=== PATIENT | male | born 1955 | race Caucasian/White ===

== ENCOUNTER 2021-04-15 12:54 | Emergency (ER) | payer MEDICARE, MEDICAID, SELFPAY | END 2021-04-16 02:53 | disposition left against medical advice (07) | PROVIDERS: Emergency Provider Emergency Medicine | DX: K50.90 Crohn's disease, unspecified, without complications (principal); R10.9 Unspecified abdominal pain ==

== ENCOUNTER 2021-05-20 09:44 | Emergency (ER) | payer MEDICARE, MEDICAID, SELFPAY ==
[2021-05-20 09:49] VITALS: BP 118/63; PULSE 72; RESP 18; TEMP 36.9; O2SAT 97; BMI 25.8
--- NOTE | 2021-05-20 10:29 | ED.EAR ---
HPI - Ear Problem General Chief complaint: Ear Problems Stated complaint: ear pain Time Seen by Provider: 05/20/21 10:17 Source: patient Mode of arrival: ambulatory Limitations: no limitations History of Present Illness HPI Narrative: 65-year-old male presents to ED for left ear pain since yesterday. Patient states feels like swimmer's ear. Patient denies any recent swimming in the [place]. Patient states pain started after using Q-tips yesterday. Patient denies any loss of hearing, ear discharge, blood from the ear, headache, nausea, or vomiting. Patient denies any coughing, fever, chills, sore throat, dental pain, body aches. MD Complaint: ear pain Related Data Previous Rx's Medication Instructions Recorded amoxicillin 875 mg-potassium 1 tab PO Q12H 10 Days #20 tab 05/20/21 clavulanate 125 mg tablet naproxen 500 mg tablet 500 mg PO BID PRN 10 Days #20 tab 05/20/21 Allergies Allergy/AdvReac Type Severity Reaction Status Date / Time No Known Allergies Allergy Verified 05/20/21 09:49 Review of Systems Review of Systems: Left ear pain Yes all other systems are reviewed and are negative FOR[facility]LY [facility], [facility] Social History Social History Advance Directives: No Advance Directives Information Provided: No Physical Exam Vital Signs: Vital Signs: Last Vital Signs Temp 98.4 F 05/20/21 09:49 Pulse 72 05/20/21 09:49 Resp 18 05/20/21 09:49 BP 118/63 05/20/21 09:49 Pulse Ox 97 05/20/21 09:49 BMI result Body Mass Index 25.8 Const: General: cooperative, healthy appearing, comfortable, no acute distress, well developed, alert and awake Orientation/consciousness: patient oriented x3 HENMT: Head: Yes normal to inspection, Yes No palpable skull fracture present, Yes normocephalic and Yes atraumatic Ears: hearing grossly normal bilaterally, external ears normal, TM normal on the right, EAC's normal, mastoids normal, no periauricular adenopathy and TM abnormal (left) erythematous Eyes: General: appearance normal, both eyes and all related structures Neck: Neck: Yes normal visual inspection, Yes full ROM, Yes no lymphadenopathy, Yes no meningeal signs, Yes trachea midline, Yes supple, No anterior neck swelling and No tender Chest: Chest palpation & inspection: normal inspection of the chest and normal palpation of entire chest wall Resp: Effort & Inspection: normal respiratory effort and able to speak in complete sentences Auscultation: clear to auscultation bilaterally Cardio: Jugular venous distension: no JVD Heart sounds: S1 normal heart sound present and S2 normal heart sound present GI: Inspection: Yes normal to inspection and No abdominal wall ecchymosis Palpation (GI): Soft to palpation, not firm, nontender, no guarding and not rigid : General: No CVA tenderness and Yes no CVA tenderness Back/Spine/Pelvis: Back: no CVA tenderness, No CVA tenderness and No back tenderness Cervical Spine: normal cervical lordosis Skin: General skin exam: no rashes or lesions noted and elasticity normal Neuro: General: patient oriented x3, gait normal and no meningeal signs Cranial nerves: Yes CN's II-XII intact bilaterally Extrem: General: Yes normal to inspection and Yes full ROM Psych: Appearance: grossly normal, well kempt and not disheveled Course Course Course Narrative: Ear evaluated Reevaluation(s) Reevaluation #1: History physical exam indicate otitis media. Patient will be discharged with pain medication oral antibiotics. Time: 10:32 MDM - Ear MDM Narrative Medical decision making narrative: otitis media Discharge Plan Discharge Clinical Impression: Otitis media Patient Disposition: Home, Self-Care Instructions: Ear Infection (ED) Additional Instructions: You will be discharged with oral antibiotics and pain medication. Please follow-up with your primary care provider. Return to the ED immediately for worsening ear pain, drainage, loss of hearing, headache, dizziness, facial droop, paralysis of extremities, toothache, redness/swelling in front or behind the ear, or any other concerning symptoms. Prescriptions: New naproxen 500 mg tablet 500 mg PO BID PRN (Reason: pain) 10 Days Qty: 20 0RF amoxicillin-pot clavulanate 875-125 mg tablet 1 tab PO Q12H 10 Days Qty: 20 0RF Stand Alone Forms: Work/School Release Interventions: ED Discharge Assessment Last Done: 05/20/21 10:44 Discharge Date/Time: 05/20/21 11:01 Print Language: Kazakh
== END 2021-05-20 11:01 | disposition home or self-care (01) ==
PROVIDERS: Emergency Provider Emergency Medicine; PCP Physician Assistant
DX: H66.92 Otitis media, unspecified, left ear (principal)
CPT/HCPCS: 99283

== ENCOUNTER 2021-08-10 07:00 | Emergency (ER) | payer MEDICARE, MEDICAID, SELFPAY ==
[2021-08-10 07:25] VITALS: BP 125/70; BP 146/96; PULSE 54; PULSE 84; RESP 18; TEMP 36.6; O2SAT 96; O2SAT 98; BMI 27.2
--- NOTE | 2021-08-10 08:07 | ED_ITS ---
HPI - General Adult General Chief complaint: General Medical Stated complaint: abd pain h/o hernia per ems Time Seen by Provider: 08/10/21 08:06 Source: patient Mode of arrival: ambulatory Limitations: no limitations History of Present Illness HPI narrative: Patient is a 66 year old male presenting to the emergency department today with left sided groin pain. Patient states that he has a known hernia in his left groin and it seems to have gotten worse after lifting a couch the other day. Patient states that he has not consulted a general surgeon about this. Patient denies any dizziness, lightheadedness, abdominal pain, nausea, vomiting, fever, chills, blurry vision, double vision, loss of vision, chest pain, difficulty breathing, shortness of breath, back pain, night sweats, pain with urination, increased urinary frequency, increased urinary urgency, blood in his urine or stool, syncope or a near syncopal episode, recent trauma or falls, bowel incontinence, bladder incontinence, bowel retention, bladder retention, or any other complaints at this time. Onset (ago): day(s) Location: genitals Radiation: non-radiation Severity: mild Severity scale (1-10): 2 Quality: dull Pain Consistency: constant Relieving factors: none Exacerbating factors: none Associated symptoms: denies other symptoms Treatments prior to arrival: none Related Data Previous Rx's Medication Instructions Recorded amoxicillin 875 mg-potassium 1 tab PO Q12H 10 Days #20 tab 05/20/21 clavulanate 125 mg tablet naproxen 500 mg tablet 500 mg PO BID PRN 10 Days #20 tab 05/20/21 Allergies Allergy/AdvReac Type Severity Reaction Status Date / Time No Known Allergies Allergy Verified 05/20/21 09:49 Review of Systems Constitutional: Constitutional: Reports no additional constitutional complaints, Denies chills, Denies fever(s) and Denies night sweats Eyes: Eyes: Reports no additional eye complaints, Denies blurry vision, Denies change in vision, Denies diplopia, Denies eye discharge, Denies loss of vision and Denies eye pain ENT: Denies dizziness Cardiovascular: Cardiovascular: Reports no additional cardiovascular complaints, Denies chest pain, Denies lightheadedness, Denies Loss of Consciousness and Denies dyspnea Respiratory: Respiratory: Reports no additional respiratory complaints and Denies dyspnea Gastrointestinal: Gastrointestinal: Reports no additional gastrointestinal complaints, Denies abdominal pain, Denies melena, Denies hematochezia, Denies change in bowel habits and Denies change in stool character Genitourinary: Genitourinary: Reports no additional male genitourinary complaints, Denies hematuria, Denies oliguria, Denies difficulty urinating, Denies dysuria, Reports testicular pain, Denies urinary frequency, Denies urinary hesitancy, Denies urinary incontinence and Denies urinary urgency Musculoskeletal: Musculoskeletal: Reports no additional musculoskeletal complaints, Denies numbness and Denies tingling Neurologic: Denies dizziness, Denies loss of vision, Denies numbness and Denies tingling Psychiatric: Psychiatric: Reports no additional psychiatric complaints Endocrine: Endocrine: Reports no additional endocrine complaints Hematologic/Lymphatic: Hematologic/Lymphatic: Reports no additional hematologic/lymphatic complaints Allergic/Immunologic: Allergic/Immunologic: Reports no additional allergic/immunologic complaints PMFSH Past Medical History Attestation statement: The following information was validated with the patient. Source: old records reviewed Social History Social History Patient Tobacco Use Status: Current someday Tobacco user Advance Directives: No Advance Directives Information Provided: No Physical Exam ED Vital Signs: Vital Signs - 24 hr 08/10/21 07:25 Temperature 97.8 F Pulse Rate 54 Respiratory Rate 18 Blood Pressure 125/70 Pulse Oximetry 98 BMI result Body Mass Index 27.2 Const General: cooperative, no acute distress, alert and awake Nutritional Appearance: well nourished Orientation/consciousness: patient oriented x3 Limitations: no limitations HENMT Head: Yes normal to inspection and Yes atraumatic Ears: hearing grossly normal bilaterally and external ears normal General nose exam: Normal external nose present, no nasal discharge noted and no epistaxis Face and sinus: Yes normal facial exam, No abrasion and No laceration Mouth: Normal oral and palatal mucosa present, no drooling and no muffled voice Eyes General: appearance normal, both eyes and all related structures Periorbital: periorbital findings normal Eyelids: Yes eyelids normal Conjunctivae: conjunctivae normal Pupils: Equal, round and reactive pupils present EOM: EOMs intact bilaterally Neck Neck: Yes normal visual inspection, Yes full ROM and Yes no lymphadenopathy Chest Chest palpation & inspection: normal inspection of the chest Resp Effort & Inspection: normal respiratory effort and able to speak in complete sentences Auscultation: clear to auscultation bilaterally Cardio Rate: regular rate Rhythm: regular rhythm GI Inspection: Yes normal to inspection Other: left sided inguinal hernia present, easily reducible Neuro General: patient oriented x3 and moves all extremities Cranial nerves: Yes Equal, round and reactive pupils present Cognition (Neuro): normal cognition Motor exam (neuro): 5/5 motor strength present throughout Sensory Exam: Normal double simultaneous stimulation for sensation Coordination: [id number] test normal Extrem General: Yes normal to inspection, Yes full ROM and Yes capillary refill normal Psych Appearance: grossly normal Mental Status: mental status grossly normal Affect: normal affect Attitude: cooperative Thought process: Normal thought process present Thought content: Normal thought content present Insight: Good insight present (Psych) Medical Decision Making MDM Narrative Medical decision making narrative: Patient is a 66 year old male presenting to the emergency department today with left sided groin pain. Patient's physical exam showed a left sided inguinal hernia that was easily reducible but was otherwise unremarkable. Patient's blood work showed elevated LFTs however, the patient states that he has a history of alcohol abuse and his liver stuff is always off . I explained my physical exam findings as well as all test results to the patient. I answered all questions asked by the patient. Patient received IM Toradol and PO [place] which he stated helped his pain significantly. I stressed the importance of the patient taking his medication as prescribed. I stressed the importance of the patient following up with his primary care provider. I stressed the importance of the patient returning to the emergency department immediately if his symptoms were to worsen or if he were to develop any dizziness, shortness of breath, difficulty br eathing, chest pain, blurry vision, loss of vision, nausea, vomiting, abdominal pain, fever, chills, back pain, or any other complaints. Patient verbalized agreement and understanding with this treatment plan and discharge. Differential Diagnosis Differential Diagnosis: inguinal hernia Medical Records Medical records reviewed: Yes I reviewed the patient's medical records. Lab Data Lab results reviewed: Yes I reviewed the patient's lab results. Result diagrams: 08/10/21 09:10 08/10/21 09:10 Labs: Lab Results 08/10/21 08/10/21 Range/Units 09:10 09:10 WBC 8.3 (4.8-10.8) X10*3/uL RBC 5.61 (4.60-5.80) X10*6/uL Hgb 15.7 (14.0-18.0) g/dl Hct 47.4 (42.0-52.0) % MCV 84.5 (80.0-98.0) fL MCH 28.0 (27.0-33.0) pg MCHC 33.1 (31.0-36.0) g/dl RDW 14.5 (11.0-16.0) % Plt Count 159 L (160-400) X10*3/uL MPV 10.4 (9.4-12.4) fL Immature Gran % (Auto) 0.5 H (0.0-0.4) % Neut % (Auto) 79.7 H (45-73) % Lymph % (Auto) 12.1 L (20-40) % [place] % (Auto) 5.3 (2-11) % Eos % (Auto) 1.8 (0-4) % Baso % (Auto) 0.6 (0-2) % Lymph # (Auto) 1.0 L (1.2-4.9) X10*3/uL [place] # (Auto) 0.4 (0.1-1.2) X10*3/uL Eos # (Auto) 0.2 (0.0-0.4) X10*3/uL Baso # (Auto) 0.1 (0.0-0.2) X10*3/uL Abs Immat Gran (auto) 0.04 H (0.00-0.03) X10*3/uL Absolute Neuts (auto) 6.6 (2.0-8.3) x10*3/uL Absolute Nucleated RBC 0.000 (0.0-0.012) X10*3/uL Nucleated RBC % (auto) 0.0 (0.0-0.2) /100WBC Sodium 136 (135-145) mmol/L Potassium 4.7 (3.3-5.1) mmol/L Chloride 105 (96-108) mmol/L Carbon Dioxide 22 (22-29) mmol/L Anion Gap 14 (12-20) BUN 15 (9-16) mg/dL Creatinine 0.94 (0.5-1.4) mg/dL Estim Creat Clear Calc 80.8 Estimated GFR > 60 Random Glucose 102 (60-115) mg/dL Calcium 9.8 (8.4-10.2) mg/dL Total Bilirubin 1.7 H (0.0-1.0) mg/dL AST 71 H (5-37) U/L ALT 74 H (0-40) U/L Alkaline Phosphatase 146 H (39-117) U/L Total Protein 7.7 (6.5-8.0) g/dL Albumin 4.5 (3.5-5.0) g/dL Discharge Plan Discharge Clinical Impression: Inguinal hernia Patient Disposition: Home, Self-Care Instructions: Inguinal Hernia (ED) Additional Instructions: Follow up with your primary care provider. Return to the emergency department immediately if your symptoms worsen or if you develop any dizziness, shortness of breath, difficulty breathing, chest pain, blurry vision, loss of vision, nausea, vomiting, abdominal pain, fever, chills, back pain, or any other complaints. Prescriptions: No Action naproxen 500 mg tablet 500 mg PO BID PRN (Reason: pain) 10 Days Qty: 20 0RF amoxicillin-pot clavulanate 875-125 mg tablet 1 tab PO Q12H 10 Days Qty: 20 0RF Referrals: [facility] [place] General Surgeons [Provider Group] (Call to follow up with a general surgeon. ) [facility] [place] Family Medicine [Provider Group] (Call to establish with a primary care provider. If you already have one, please follow up with them. ) [facility] [place] Primary Care, Elias [Provider Group] (Call to establish with a primary care provider. If you already have one, please follow up with them. ) [facility] [place] Primary Care,Rupal [Provider Group] (Call to establish with a primary care provider. If you already have one, please follow up with them. ) Interventions: ED Discharge Assessment Last Done: 08/10/21 10:01 Discharge Date/Time: 08/10/21 10:03 Print Language: Cambodian
[2021-08-10] MEDS: Ketorolac Tromethamine 15 MG/ML VIAL IM (08:25)
[2021-08-10 09:17] LABS: Basophils Absolute Auto 0.1 X10*3/uL (0.0-0.2); Basophils Percent Auto 0.6 % (0-2); Eosinophils Absolute Auto 0.2 X10*3/uL (0.0-0.4); Eosinophils Percent Auto 1.8 % (0-4); Hematocrit 47.4 % (42.0-52.0); Hemoglobin 15.7 g/dl (14.0-18.0); Imm Gran Abs Auto 0.04 X10*3/uL (0.00-0.03); Imm Gran Pct Auto 0.5 % (0.0-0.4); Lymphocytes Percent Auto 12.1 % (20-40); MANUAL DIFF FLAG NO; Mean Corpuscular HGB Conc 33.1 g/dl (31.0-36.0); Mean Corpuscular Volume 84.5 fL (80.0-98.0); Mean Platelet Volume 10.4 fL (9.4-12.4); Monocytes Absolute Auto 0.4 X10*3/uL (0.1-1.2); Monocytes Percent Auto 5.3 % (2-11); Neutrophils Absolute Auto 6.6 x10*3/uL (2.0-8.3); Neutrophils Percent Auto 79.7 % (45-73); Platelet Count 159 X10*3/uL (160-400); Red Blood Count 5.61 X10*6/uL (4.60-5.80); Red Cell Distribution Width 14.5 % (11.0-16.0); White Blood Count 8.3 X10*3/uL (4.8-10.8)
[2021-08-10 09:33] LABS: Alanine Aminotransferase 74 U/L (0-40); Albumin Level 4.5 g/dL (3.5-5.0); Alkaline Phosphatase 146 U/L (39-117); Anion Gap 14 (12-20); Aspartate Amino Transferase 71 U/L (5-37); Bilirubin Total 1.7 mg/dL (0.0-1.0); Blood Urea Nitrogen 15 mg/dL (9-16); Calcium 9.8 mg/dL (8.4-10.2); Carbon Dioxide 22 mmol/L (22-29); Chloride 105 mmol/L (96-108); Creatinine Clr Calc Pharmacy 80.8; Estimated Glomerular Filt Rate > 60; Glucose Random 102 mg/dL (60-115); Potassium 4.7 mmol/L (3.3-5.1); Sodium 136 mmol/L (135-145); Total Protein 7.7 g/dL (6.5-8.0)
[2021-08-10] MEDS: HYDROcodone Bit/Acetam 5/325 TABLET 1 TAB PO (09:57)
== END 2021-08-10 10:03 | disposition home or self-care (01) ==
PROVIDERS: Physician Assistant Medical; Emergency Provider Emergency Medicine Emergency Medical Services
DX: K40.90 Unilateral inguinal hernia, without obstruction or gangrene, not specified as recurrent (principal); R10.32 Left lower quadrant pain; F17.200 Nicotine dependence, unspecified, uncomplicated
CPT/HCPCS: 36415; 80053; 85025; 96372; 99284; J1885

== ENCOUNTER 2023-09-27 10:35 | Emergency (ER) | payer OTHER, SELFPAY ==
--- NOTE | ~2023-09-27 | XR_ITS ---
Examination: XR foot LT 2V, XR knee LT 4V Indication: slight ecchymosis. fracture? Comparison: No pertinent prior studies are currently available for comparison. Technique: 4 views of the left knee and 3 views of the left foot. Findings: Left knee: No significant knee joint effusion. Lungs are normal anatomic alignment with no acute fracture or dislocation. Mild tricompartmental degenerative changes are seen more so in the medial compartment where there is more significant joint space loss and subchondral sclerosis. No bony destructive lesions. Vascular calcification seen. Left foot: Bones are normal anatomic alignment with no acute fracture or dislocation seen. No bony destructive lesions or periosteal reaction. Tiny radiopaque foreign bodies are seen within the soft tissues of the foot posterior to the calcaneus and in the region of the fifth metatarsal head. These are of unlikely acute significance. XR/XR knee LT 4V Impression: Mild degenerative changes but no acute fracture or dislocation. Tiny radiopaque foreign bodies in the soft tissues posterior to the calcaneus and fifth metatarsal head.
--- NOTE | ~2023-09-27 | US_ITS ---
EXAMINATION: US VENOUS ULTRASOUND WITH DOPPLER LOWER EXTREMITY, LEFT CLINICAL INFORMATION: Left lower extremity pain. COMPARISON: None available. TECHNIQUE: Ultrasound of the deep veins is performed from the hip to the calf with compression sonography and color and pulse Doppler assessment. Spectral analysis with color-flow imaging is performed. FINDINGS: There is normal venous compression and respiratory variation and augmented flow. The visualized common femoral vein, superficial femoral vein, profunda femoral vein, popliteal vein, and the trifurcation region shows no evidence of deep venous thrombosis. There is no significant popliteal fossa cyst. If the patient's symptoms persist, followup ultrasound in 5 days 7 days might be of value to exclude proximal propagation from a non-visualized calf vein. US/US venous duplex LE IMPRESSION: No DVT demonstrated in the left lower extremity.
--- NOTE | ~2023-09-27 | XR_ITS ---
Examination: XR foot LT 2V, XR knee LT 4V Indication: slight ecchymosis. fracture? Comparison: No pertinent prior studies are currently available for comparison. Technique: 4 views of the left knee and 3 views of the left foot. Findings: Left knee: No significant knee joint effusion. Lungs are normal anatomic alignment with no acute fracture or dislocation. Mild tricompartmental degenerative changes are seen more so in the medial compartment where there is more significant joint space loss and subchondral sclerosis. No bony destructive lesions. Vascular calcification seen. Left foot: Bones are normal anatomic alignment with no acute fracture or dislocation seen. No bony destructive lesions or periosteal reaction. Tiny radiopaque foreign bodies are seen within the soft tissues of the foot posterior to the calcaneus and in the region of the fifth metatarsal head. These are of unlikely acute significance. XR/XR foot LT 2V Impression: Mild degenerative changes but no acute fracture or dislocation. Tiny radiopaque foreign bodies in the soft tissues posterior to the calcaneus and fifth metatarsal head.
[2023-09-27 10:43] VITALS: BP 120/77; PULSE 77; RESP 18; TEMP 36.7; O2SAT 97; BMI 25.8
[2023-09-27 11:00] LABS: MANUAL DIFF FLAG NO
[2023-09-27 11:02] LABS: PLT CLUMP 1; Red Cell Distribution Width 13.8 % (11.0-16.0); SCAN SMEAR FLAG 1
[2023-09-27 11:04] LABS: Basophils Absolute Auto 0.1 X10*3/uL (0.0-0.2); Basophils Percent Auto 0.8 % (0-2); Eosinophils Absolute Auto 0.7 X10*3/uL (0.0-0.4); Eosinophils Percent Auto 5.6 % (0-4); Hematocrit 42.8 % (42.0-52.0); Hemoglobin 15.4 g/dl (14.0-18.0); Imm Gran Abs Auto 0.06 X10*3/uL (0.00-0.03); Imm Gran Pct Auto 0.5 % (0.0-0.4); Lymphocytes Absolute Auto 2.1 X10*3/uL (1.2-4.9); Lymphocytes Percent Auto 17.8 % (20-40); Mean Corpuscular Hemoglobin 31.8 pg (27.0-33.0); Mean Corpuscular Volume 88.4 fL (80.0-98.0); Mean Platelet Volume 11.1 fL (9.4-12.4); Monocytes Absolute Auto 0.8 X10*3/uL (0.1-1.2); Neutrophils Absolute Auto 7.9 x10*3/uL (2.0-8.3); Neutrophils Percent Auto 68.3 % (45-73); Red Blood Count 4.84 X10*6/uL (4.60-5.80)
[2023-09-27 11:05] LABS: Platelet Count 108 X10*3/uL (160-400); White Blood Count 11.6 X10*3/uL (4.8-10.8)
[2023-09-27 11:06] LABS: Prothrombin Time 12.3 SEC (11.1-13.3)
[2023-09-27 11:14] LABS: Alanine Aminotransferase 22 U/L (0-40); Albumin Level 4.4 g/dL (3.5-5.0); Alkaline Phosphatase 142 U/L (39-117); Anion Gap 14 (12-20); Aspartate Amino Transferase 24 U/L (5-37); Bilirubin Total 0.9 mg/dL (0.0-1.0); Blood Urea Nitrogen 15 mg/dL (9-16); Calcium 9.9 mg/dL (8.4-10.2); Carbon Dioxide 21 mmol/L (22-29); Chloride 108 mmol/L (96-108); Creatinine Clr Calc Pharmacy 73.2; Estimated Glomerular Filt Rate > 60; Glucose Random 109 mg/dL (60-115); Potassium 4.3 mmol/L (3.3-5.1); Sodium 139 mmol/L (135-145); Total Protein 7.5 g/dL (6.5-8.0)
--- NOTE | 2023-09-27 11:47 | ED_ITS ---
HPI - General Adult General Chief complaint: General Medical Stated complaint: swelling foot Time Seen by Provider: 09/27/23 11:29 Source: patient Mode of arrival: ambulatory Limitations: no limitations History of Present Illness ED Provider: Jordi LUNA HPI narrative: 68-year-old male smoker who states no past medical history presents to ED for left anterior and posterior knee pain radiating down leg. Patient denies any recent trauma. Patient denies any chest pain, shortness of breath, pleurisy, redness, fever, chills, any recent trauma. Patient states very active. Related Data Previous Rx's ?Medication ?Instructions ?Recorded amoxicillin 875 mg-potassium 1 tab PO Q12H 10 days #20 tabs 05/20/21 clavulanate 125 mg tablet naproxen 500 mg tablet 500 mg PO BID PRN pain 10 days #20 05/20/21 tabs ketorolac 10 mg tablet 10 mg PO QID PRN pain 5 days #20 09/27/23 tabs Allergies Allergy/AdvReac Type Severity Reaction Status Date / Time No Known Allergies Allergy Verified 09/27/23 10:47 Review of Systems 2 Review of Systems: Anterior posterior left knee pain radiating down leg. Yes all other systems are reviewed and are negative PMFSH Social History Social History Patient Tobacco Use Status: Current someday Tobacco user Advance Directives: Yes Advance Directives Information Provided: Yes Advance Directives on File: No Do you have a plan to hurt others: No Plan Physical Exam ED Vital Signs: Vital Signs - 24 hr 09/27/23 10:43 09/27/23 12:48 09/27/23 13:15 Temperature 98.0 F 98.2 F 98.2 F Pulse Rate 77 66 66 Respiratory Rate 18 17 17 Blood Pressure 120/77 150/76 H 150/76 H Pulse Oximetry 97 97 97 Oxygen Delivery Method Room Air Room Air Room Air BMI result Body Mass Index 25.8 Const General: cooperative, healthy appearing, comfortable, no acute distress, well developed, alert, awake and Physically active [facility] Head: Yes normal to inspection, Yes No palpable skull fracture present, Yes normocephalic, Yes atraumatic and No abrasion Eyes General: appearance normal, both eyes and all related structures Neck Neck: Yes normal visual inspection, Yes full ROM, Yes no lymphadenopathy, Yes no meningeal signs, Yes trachea midline, Yes supple, No anterior neck swelling and No tender Chest Chest palpation & inspection: normal inspection of the chest and normal palpation of entire chest wall Resp Effort & Inspection: normal respiratory effort and able to speak in complete sentences Auscultation: clear to auscultation bilaterally Cardio Jugular venous distension: no JVD Heart sounds: S1 normal heart sound present and S2 normal heart sound present GI Inspection: Yes normal to inspection and No abdominal wall ecchymosis Palpation (GI): Soft to palpation, not firm, nontender, no guarding and not rigid General: No CVA tenderness and Yes no CVA tenderness Back/Spine/Pelvis Back: no CVA tenderness, No CVA tenderness and No back tenderness Skin General skin exam: no rashes or lesions noted, elasticity normal and turgor normal Neuro General: gait normal, tone normal, moves all extremities, Normal light touch and pain sensation, no meningeal signs, no focal motor deficits, CN's II-XI intact bilaterally and normal sensation to monofilament Extrem Other: Bilateral lower extremity negative for swelling, pitting edema, calf tenderness, redness, deformity, bluish black discoloration, hotness, or coldness. General: Yes normal to inspection, Yes full ROM and Yes capillary refill normal Knee images: 2 1. Positive for tenderness on palpation. Negative for erythema, bluish black discoloration, stiffness, or deformity. Rest of extremity normal. Motor/neuro/vascular exam intact. 2. Positive for tenderness on palpation. Negative for erythema, bluish black discoloration, stiffness, or deformity. Rest of extremity normal. Motor/neuro/vascular exam intact. Ankle/foot/toe images: 2 1. Slight ecchymosis venous venous stasis changes. Negative for erythema, tenderness, deformity, crepitus, hotness, or coldness. Rest of extremity normal. Motor/neuro/vascular exam intact Psych Appearance: grossly normal, well kempt and not disheveled Medications Administered Discontinued Medications Generic Name Dose Route Start Last Admin Trade Name Freq PRN Reason Stop Dose Admin Ketorolac Tromethamine 30 mg 09/27/23 12:12 09/27/23 12:45 Ketorolac Tromethamine 30 Mg/Ml Vial IM 09/27/23 12:13 30 mg ONCE ONE Administration Medical Decision Making Medical Decision Making [facility] Narrative: 68-year-old male presents to the ED for left anterior posterior knee pain going down left leg. Patient denies any trauma. Vascular motor neuro exam is intact of left lower extremity. Patient is sent for x-ray of knee and ultrasound make sure no blood clot fracture, or large amount of fluid. Presently not suspecting septic joint. Left foot slight ecchymosis patient denies any trauma left foot x-ray ordered. Left foot negative for tenderness. 13:07; ultrasound negative DVT. Foot and knee x-ray positive for arthritis. Patient is on any blood thinners. Patient states pain resolved with Toradol. Patient requested Toradol prescription. Patient informed not to take any other NSAIDs with Toradol. Patient explained worrisome signs and informed to return to the ED immediately. Not suspecting cellulitis, compartment syndrome, fracture, DVT, or arterial occlusion. Patient educated on stop smoking which could lead to claudication which could lead to blood flow issues. Differential Diagnosis Differential Diagnoses: The differential diagnosis associated with the presentation includes ( He arthritis, DVT, fracture) Lab Data [facility] Lab Attestation statement: I reviewed the patient's lab results. 09/27/23 10:56 09/27/23 10:56 Labs: Lab Results 09/27/23 Range/Units 10:56 WBC 11.6 H (4.8-10.8) X10*3/uL RBC 4.84 (4.60-5.80) X10*6/uL Hgb 15.4 (14.0-18.0) g/dl Hct 42.8 (42.0-52.0) % MCV 88.4 (80.0-98.0) fL MCH 31.8 (27.0-33.0) pg MCHC 36.0 (31.0-36.0) g/dl RDW 13.8 (11.0-16.0) % Plt Count 108 L D (160-400) X10*3/uL MPV 11.1 (9.4-12.4) fL Immature Gran % (Auto) 0.5 H (0.0-0.4) % Neut % (Auto) 68.3 (45-73) % Lymph % (Auto) 17.8 L (20-40) % [place] % (Auto) 7.0 (2-11) % Eos % (Auto) 5.6 H (0-4) % Baso % (Auto) 0.8 (0-2) % Lymph # (Auto) 2.1 (1.2-4.9) X10*3/uL [place] # (Auto) 0.8 (0.1-1.2) X10*3/uL Eos # (Auto) 0.7 H (0.0-0.4) X10*3/uL Baso # (Auto) 0.1 (0.0-0.2) X10*3/uL Abs Immat Gran (auto) 0.06 H (0.00-0.03) X10*3/uL Absolute Neuts (auto) 7.9 (2.0-8.3) x10*3/uL Absolute Nucleated RBC 0.000 (0.0-0.012) X10*3/uL Nucleated RBC % (auto) 0.0 (0.0-0.2) /100WBC PT 12.3 (11.1-13.3) SEC INR 1.0 (0.9-1.1) Sodium 139 (135-145) mmol/L Potassium 4.3 (3.3-5.1) mmol/L Chloride 108 (96-108) mmol/L Carbon Dioxide 21 L (22-29) mmol/L Anion Gap 14 (12-20) BUN 15 (9-16) mg/dL Creatinine 1.01 (0.5-1.4) mg/dL Estim Creat Clear Calc 73.2 Estimated GFR > 60 Random Glucose 109 (60-115) mg/dL Calcium 9.9 (8.4-10.2) mg/dL Total Bilirubin 0.9 (0.0-1.0) mg/dL AST 24 (5-37) U/L ALT 22 (0-40) U/L Alkaline Phosphatase 142 H (39-117) U/L Total Protein 7.5 (6.5-8.0) g/dL Albumin 4.4 (3.5-5.0) g/dL Independent Interpretation I performed an independent interpretation of an: Plain X-Ray and CT Scan Radiology Impression Discussion of test interpretation with radiology: I have reviewed the radiologist's reading. Independent Historian Clinical information obtained from an independent historian. History obtained from or confirmed by: Other ( patient) External Record Review External record reviewed: Other ( prior visits) Discharge Plan Discharge Clinical Impression: Degenerative arthritis Patient Disposition: Home, Self-Care Instructions: Osteoarthritis (ED) Additional Instructions: do not take any other NSAIDs with Toradol/ketorolac. do not take any naproxen, Advil, Motrin, or ibuprofen. return to the ED immediately for redness, swelling, bluish black discoloration, calf pain, chest pain, fever, chills, red streaks, hotness, coldness, numbness /tingling, or any other concerning symptoms. recommend follow-up with your primary care provider. US/US venous duplex LE LT IMPRESSION: No DVT demonstrated in the left lower extremity. Findings: Left knee: No significant knee joint effusion. Lungs are normal anatomic alignment with no acute fracture or dislocation. Mild tricompartmental degenerative changes are seen more so in the medial compartment where there is more significant joint space loss and subchondral sclerosis. No bony destructive lesions. Vascular calcification seen. Left foot: Bones are normal anatomic alignment with no acute fracture or dislocation seen. No bony destructive lesions or periosteal reaction. Tiny radiopaque foreign bodies are seen within the soft tissues of the foot posterior to the calcaneus and in the region of the fifth metatarsal head. These are of unlikely acute significance. XR/XR knee LT 4V Impression: Mild degenerative changes but no acute fracture or dislocation. Tiny radiopaque foreign bodies in the soft tissues posterior to the calcaneus and fifth metatarsal head. Prescriptions: New ketorolac 10 mg tablet 10 mg PO QID PRN (Reason: pain) 5 Days Qty: 20 0RF Rx Instructions: Patient received Toradol 30 mg IM in the ED No Action naproxen 500 mg tablet 500 mg PO BID PRN (Reason: pain) 10 Days Qty: 20 0RF amoxicillin-pot clavulanate 875-125 mg tablet 1 tab PO Q12H 10 Days Qty: 20 0RF Interventions: ED Discharge Assessment Last Done: 09/27/23 13:15 Discharge Date/Time: 09/27/23 13:15 Print Language: Portuguese
[2023-09-27] MEDS: Ketorolac Tromethamine 30 MG/ML VIAL IM (12:45)
[2023-09-27 12:48] VITALS: BP 150/76; PULSE 66; RESP 17; TEMP 36.8; O2SAT 97
[2023-09-27 13:15] VITALS: BP 150/76; PULSE 66; RESP 17; TEMP 36.8; O2SAT 97
== END 2023-09-27 13:15 | disposition home or self-care (01) ==
PROVIDERS: Emergency Provider Emergency Medicine
DX: M17.12 Unilateral primary osteoarthritis, left knee (principal); R19.7 Diarrhea, unspecified; M79.662 Pain in left lower leg; R58 Hemorrhage, not elsewhere classified
CPT/HCPCS: 36415; 73564; 73620; 80053; 85025; 85610; 93971; 96372; 99284; J1885

== ENCOUNTER 2023-09-29 09:00 | Emergency (ER) | payer OTHER, SELFPAY ==
[2023-09-29 09:29] VITALS: BP 186/117; PULSE 89; RESP 18; TEMP 37; O2SAT 97; BMI 26.0
[2023-09-30 13:28] LABS: Adenovirus F 40/41 Not Detected (Not Detect.); Astrovirus Not Detected (Not Detect.); Campylobacter Not Detected (Not Detect.); Cryptosporidium Not Detected (Not Detect.); Cyclospora cayetanensis Not Detected (Not Detect.); E. coli EAEC Not Detected (Not Detect.); E. coli EPEC Not Detected (Not Detect.); E. coli ETEC Not Detected (Not Detect.); E. coli STEC Not Detected (Not Detect.); Entamoeba histolytica Not Detected (Not Detect.); Giardia lamblia Not Detected (Not Detect.); Norovirus GI/GII Not Detected (Not Detect.); Plesiomonas shigelloides Not Detected (Not Detect.); Rotavirus A Not Detected (Not Detect.); Salmonella Not Detected (Not Detect.); Shigella sp./EIEC Not Detected (Not Detect.); Vibrio Not Detected (Not Detect.); Vibrio Cholerae Not Detected (Not Detect.)
[2023-09-30 14:22] LABS: Yersinia enterocolitica Detected (Not Detect.)
[2023-09-30 14:23] LABS: Sapovirus Not Detected (Not Detect.)
== END 2023-09-29 12:15 | disposition left against medical advice (07) ==
PROVIDERS: Physician Assistant; Emergency Provider Emergency Medicine
DX: R19.7 Diarrhea, unspecified (principal); Z53.21 Procedure and treatment not carried out due to patient leaving prior to being seen by health care provider
CPT/HCPCS: 87507; 99281; 99282

== ENCOUNTER 2023-09-29 19:53 | Outpatient (REF) | payer OTHER, MEDICARE, MEDICAID, SELFPAY | END 2023-09-29 19:54 | disposition home or self-care (01) | LOC: HO.LAB 19:53 | PROVIDERS: Visit Provider Physician Assistant | DX: Z13.89 Encounter for screening for other disorder (principal) ==

== ENCOUNTER 2023-10-06 09:57 | Emergency (ER) | payer MEDICARE, MEDICAID, SELFPAY ==
[2023-10-06 10:14] VITALS: BP 155/96; PULSE 90; RESP 16; TEMP 36.5; O2SAT 95; BMI 25.8
== END 2023-10-06 12:13 | disposition left against medical advice (07) ==
PROVIDERS: Emergency Provider Emergency Medicine
DX: R10.9 Unspecified abdominal pain (principal); Z53.21 Procedure and treatment not carried out due to patient leaving prior to being seen by health care provider
CPT/HCPCS: 99281; 99282

== ENCOUNTER 2023-12-26 19:26 | Emergency (ER) | payer OTHER, SELFPAY ==
[2023-12-26 19:30] VITALS: BP 169/100; PULSE 88; RESP 20; TEMP 36.7; O2SAT 97; BMI 25.8
--- NOTE | 2023-12-26 19:39 | ED_ITS ---
HPI - Male Genitourinary General Chief complaint: Urogenital-Male Stated complaint: blood in the urine Time Seen by Provider: 12/26/23 21:33 Source: patient Mode of arrival: ambulatory Related Data Previous Rx's ?Medication ?Instructions ?Recorded amoxicillin 875 mg-potassium 1 tab PO Q12H 10 days #20 tabs 05/20/21 clavulanate 125 mg tablet naproxen 500 mg tablet 500 mg PO BID PRN pain 10 days #20 05/20/21 tabs ketorolac 10 mg tablet 10 mg PO QID PRN pain 5 days #20 09/27/23 tabs Allergies Allergy/AdvReac Type Severity Reaction Status Date / Time No Known Allergies Allergy Verified 12/26/23 19:31 [facility] Social History Social History Patient Tobacco Use Status: Current someday Tobacco user Advance Directives: No Advance Directives Information Provided: No Do you have a plan to hurt others: No Plan Physical Exam 2 Vital Signs: Vital Signs: Last Vital Signs Temp 98.6 F 12/26/23 20:55 Pulse 59 12/26/23 20:55 Resp 16 12/26/23 20:55 BP 132/73 12/26/23 20:55 Pulse Ox 96 12/26/23 20:55 O2 Del Method Room Air 12/26/23 20:55 BMI result Body Mass Index 25.8 Course Course Course Narrative: RME performed by Magnolia Meredith PA-C. Patient is a 68 year old assigned male at presenting to the emergency department with blood in his urine. Patient states that he has had blood in his urine over the last day. Detailed physical exam and review of systems are deferred to the refractive surgeon. Labs ordered. Patient placed back in the waiting room pending room availability and results. Medical Decision Making Lab Data 12/26/23 19:57 12/26/23 19:57 Labs: Lab Results 12/26/23 12/26/23 Range/Units 19:40 19:57 WBC 8.1 (4.8-10.8) X10*3/uL RBC 4.63 (4.60-5.80) X10*6/uL Hgb 14.1 (14.0-18.0) g/dl Hct 41.1 L (42.0-52.0) % MCV 88.8 (80.0-98.0) fL MCH 30.5 (27.0-33.0) pg MCHC 34.3 (31.0-36.0) g/dl RDW 12.9 (11.0-16.0) % Plt Count 90 L (160-400) X10*3/uL MPV 10.3 (9.4-12.4) fL Immature Gran % (Auto) 0.2 (0.0-0.4) % Neut % (Auto) 78.1 H (45-73) % Lymph % (Auto) 11.6 L (20-40) % [place] % (Auto) 5.8 (2-11) % Eos % (Auto) 3.9 (0-4) % Baso % (Auto) 0.4 (0-2) % Lymph # (Auto) 0.9 L (1.2-4.9) X10*3/uL [place] # (Auto) 0.5 (0.1-1.2) X10*3/uL Eos # (Auto) 0.3 (0.0-0.4) X10*3/uL Baso # (Auto) 0.0 (0.0-0.2) X10*3/uL Abs Immat Gran (auto) 0.02 (0.00-0.03) X10*3/uL Absolute Neuts (auto) 6.3 (2.0-8.3) x10*3/uL Absolute Nucleated RBC 0.000 (0.0-0.012) X10*3/uL Nucleated RBC % (auto) 0.0 (0.0-0.2) /100WBC Sodium 138 (135-145) mmol/L Potassium 3.9 (3.3-5.1) mmol/L Chloride 107 (96-108) mmol/L Carbon Dioxide 23 (22-29) mmol/L Anion Gap 12 (12-20) BUN 8 L (9-16) mg/dL Creatinine 0.88 (0.5-1.4) mg/dL Estim Creat Clear Calc 84.1 Estimated GFR > 60 Random Glucose 190 H (60-115) mg/dL Calcium 8.9 D (8.4-10.2) mg/dL Total Bilirubin 1.2 H (0.0-1.0) mg/dL AST 73 H (5-37) U/L ALT 44 H (0-40) U/L Alkaline Phosphatase 201 H (39-117) U/L Total Protein 7.2 (6.5-8.0) g/dL Albumin 4.0 (3.5-5.0) g/dL Urine Color RED Urine Appearance Hazy Urine pH 7.0 (5.0-9.0) Ur Specific [place] 1.010 (1.005-1.025) Urine Protein 30 (1+) H (Neg-Trace) mg/dL Urine Glucose (UA) Negative (Negative) mg/dL Urine Ketones Negative (Negative) mg/dL Urine Blood Large (3+) H (Negative) Urine Nitrite Negative (Negative) Ur Leukocyte Esterase Trace H (Negative) Urine RBC >20 H (0-2) /HPF Urine WBC 6-10 H (0-5) /HPF Ur Squamous Epith Cells 0-2 (0-2) /HPF Urine Bacteria None Seen (None Seen) Hyaline Casts 0-2 (0-2) /LPF Discharge Plan Discharge Prescriptions: No Action naproxen 500 mg tablet 500 mg PO BID PRN (Reason: pain) 10 Days Qty: 20 0RF amoxicillin-pot clavulanate 875-125 mg tablet 1 tab PO Q12H 10 Days Qty: 20 0RF ketorolac 10 mg tablet 10 mg PO QID PRN (Reason: pain) 5 Days Qty: 20 0RF Rx Instructions: Patient received Toradol 30 mg IM in the ED Print Language: Croatian
[2023-12-26 19:48] LABS: Appearance Urine Hazy; Color Urine RED; Glucose Urine UA Negative (Negative); Leukocyte Esterase Urine Trace (Negative); Nitrite Urine Negative (Negative); UMIC TRIGGER UACC YES; Urine Blood Large (3+) (Negative); Urine Ketones Negative (Negative); Urine Protein 30 (1+) mg/dL (Neg-Trace)
[2023-12-26 19:50] LABS: Bacteria Urine None Seen (None Seen); Hyaline Casts Urine 0-2 /LPF (0-2); RBC Urine >20 /HPF (0-2); Squamous Epithelial Cell Urine 0-2 /HPF (0-2); UACC Culture Trigger YES
[2023-12-26 20:02] LABS: MANUAL DIFF FLAG NO
[2023-12-26 20:06] LABS: Basophils Percent Auto 0.4 % (0-2); Eosinophils Absolute Auto 0.3 X10*3/uL (0.0-0.4); Eosinophils Percent Auto 3.9 % (0-4); Hematocrit 41.1 % (42.0-52.0); Hemoglobin 14.1 g/dl (14.0-18.0); Imm Gran Abs Auto 0.02 X10*3/uL (0.00-0.03); Imm Gran Pct Auto 0.2 % (0.0-0.4); Lymphocytes Absolute Auto 0.9 X10*3/uL (1.2-4.9); Lymphocytes Percent Auto 11.6 % (20-40); Mean Corpuscular HGB Conc 34.3 g/dl (31.0-36.0); Mean Corpuscular Hemoglobin 30.5 pg (27.0-33.0); Mean Corpuscular Volume 88.8 fL (80.0-98.0); Mean Platelet Volume 10.3 fL (9.4-12.4); Monocytes Absolute Auto 0.5 X10*3/uL (0.1-1.2); Monocytes Percent Auto 5.8 % (2-11); Neutrophils Absolute Auto 6.3 x10*3/uL (2.0-8.3); Neutrophils Percent Auto 78.1 % (45-73); Red Blood Count 4.63 X10*6/uL (4.60-5.80); Red Cell Distribution Width 12.9 % (11.0-16.0); White Blood Count 8.1 X10*3/uL (4.8-10.8)
[2023-12-26 20:19] LABS: Alanine Aminotransferase 44 U/L (0-40); Alkaline Phosphatase 201 U/L (39-117); Anion Gap 12 (12-20); Aspartate Amino Transferase 73 U/L (5-37); Bilirubin Total 1.2 mg/dL (0.0-1.0); Blood Urea Nitrogen 8 mg/dL (9-16); Calcium 8.9 mg/dL (8.4-10.2); Carbon Dioxide 23 mmol/L (22-29); Chloride 107 mmol/L (96-108); Creatinine Clr Calc Pharmacy 84.1; Estimated Glomerular Filt Rate > 60; Glucose Random 190 mg/dL (60-115); Potassium 3.9 mmol/L (3.3-5.1); Sodium 138 mmol/L (135-145); Total Protein 7.2 g/dL (6.5-8.0)
[2023-12-26 20:27] LABS: Platelet Count 90 X10*3/uL (160-400)
[2023-12-26 20:55] VITALS: BP 132/73; PULSE 59; RESP 16; TEMP 37; O2SAT 96
--- NOTE | 2023-12-27 11:35 | ED.MALEGU ---
HPI - Male Genitourinary General Chief complaint: Urogenital-Male Stated complaint: blood in the urine Time Seen by Provider: 12/26/23 21:33 Source: patient Mode of arrival: ambulatory Limitations: no limitations History of Present Illness ED Provider: Magnolia Meredith PA-C HPI Narrative: Patient is a 68 year old assigned male at with a history of tobacco use presenting to the emergency department today with painful urination and blood in his urine. Patient states that that he noticed he had blood in his urine and it was painful to urinate. Patient denies any dizziness, lightheadedness, abdominal pain, nausea, vomiting, fever, chills, blurry vision, double vision, loss of vision, chest pain, difficulty breathing, shortness of breath, back pain, night sweats, increased urinary frequency, increased urinary urgency, blood in his stool, syncope or a near syncopal episode, recent trauma or falls, bowel incontinence, bladder incontinence, or any other complaints at this time. Relieving factors: none Exacerbating factors: none Related Data Previous Rx's ?Medication ?Instructions ?Recorded amoxicillin 875 mg-potassium 1 tab PO Q12H 10 days #20 tabs 05/20/21 clavulanate 125 mg tablet naproxen 500 mg tablet 500 mg PO BID PRN pain 10 days #20 05/20/21 tabs ketorolac 10 mg tablet 10 mg PO QID PRN pain 5 days #20 09/27/23 tabs Allergies Allergy/AdvReac Type Severity Reaction Status Date / Time No Known Allergies Allergy Verified 12/26/23 19:31 Review of Systems Constitutional: Constitutional: Reports no additional constitutional complaints, Denies chills, Denies fever(s) and Denies night sweats Eyes: Eyes: Reports no additional eye complaints, Denies blurry vision, Denies change in vision, Denies diplopia, Denies eye discharge, Denies loss of vision and Denies eye pain ENT: Denies dizziness Cardiovascular: Cardiovascular: Reports no additional cardiovascular complaints, Denies chest pain, Denies lightheadedness, Denies Loss of Consciousness and Denies dyspnea Respiratory: Respiratory: Reports no additional respiratory complaints and Denies dyspnea Gastrointestinal: Gastrointestinal: Reports no additional gastrointestinal complaints, Denies abdominal pain, Denies melena, Denies hematochezia, Denies change in bowel habits and Denies change in stool character Genitourinary: Genitourinary: Reports no additional male genitourinary complaints, Reports hematuria, Denies oliguria, Denies difficulty urinating, Reports dysuria, Denies urinary frequency, Denies urinary hesitancy, Denies urinary incontinence and Denies urinary urgency Musculoskeletal: Musculoskeletal: Reports no additional musculoskeletal complaints, Denies numbness and Denies tingling Neurologic: Denies dizziness, Denies loss of vision, Denies numbness and Denies tingling Psychiatric: Psychiatric: Reports no additional psychiatric complaints Endocrine: Endocrine: Reports no additional endocrine complaints Hematologic/Lymphatic: Hematologic/Lymphatic: Reports no additional hematologic/lymphatic complaints Allergic/Immunologic: Allergic/Immunologic: Reports no additional allergic/immunologic complaints [facility] Past Medical History Attestation statement: The following information was validated with the patient. Source: old records reviewed and nursing notes reviewed Social History Social History Patient Tobacco Use Status: Current someday Tobacco user Advance Directives: No Advance Directives Information Provided: No Do you have a plan to hurt others: No Plan Physical Exam Vital Signs: Vital Signs: Last Vital Signs Temp 98.6 F 12/26/23 20:55 Pulse 59 12/26/23 20:55 Resp 16 12/26/23 20:55 BP 132/73 12/26/23 20:55 Pulse Ox 96 12/26/23 20:55 O2 Del Method Room Air 12/26/23 20:55 BMI result Body Mass Index 25.8 Const: General: cooperative, no acute distress, alert and awake Nutritional Appearance: well nourished Orientation/consciousness: patient oriented x3 Limitations: no limitations HEENT: Head: Yes normal to inspection and Yes atraumatic Ears: hearing grossly normal bilaterally and external ears normal General nose exam: Normal external nose present, no nasal discharge noted and no epistaxis Face and sinus: Yes normal facial exam, No abrasion and No laceration Mouth: Normal oral and palatal mucosa present, no drooling and no muffled voice Eyes: General: appearance normal, both eyes and all related structures Periorbital: periorbital findings normal Eyelids: Yes eyelids normal Conjunctivae: conjunctivae normal Pupils: Equal, round and reactive pupils present EOM: EOMs intact bilaterally Neck: Neck: Yes normal visual inspection, Yes full ROM and Yes no lymphadenopathy Chest: Chest palpation & inspection: normal inspection of the chest Resp: Effort & Inspection: normal respiratory effort and able to speak in complete sentences GI: Inspection: Yes normal to inspection Neuro: General: patient oriented x3 and moves all extremities Cranial nerves: Yes Equal, round and reactive pupils present Cognition (Neuro): normal cognition Extrem: General: Yes normal to inspection, Yes full ROM and Yes capillary refill normal Psych: Appearance: grossly normal Mental Status: mental status grossly normal Affect: normal affect Attitude: cooperative Thought process: Normal thought process present Thought content: Normal thought content present Insight: Good insight present (Psych) Course Course Course Narrative: RME performed by Magnolia Meredith PA-C. Patient is a 68 year old assigned male at presenting to the emergency department with blood in his urine and painful urination. Detailed physical exam and review of systems are deferred to the hot worker. Labs ordered. Patient placed back in the waiting room pending room availability and results. Medical Decision Making Medical Decision Making MDM Narrative: Patient is a 68 year old assigned male at with a history of tobacco use presenting to the emergency department today with blood in his urine and painful urination. Patient's limited physical exam performed in triage was unremarkable. Patient's blood work was showed mild elevation of LFTs but were otherwise unremarkable. Patient's urine showed blood but was otherwise unremarkable. Patient left the department without completing treatment. Patient left the department before myself or any of the other emergency department clinicians could explain to or review with the patient; physical exam findings, test results, need or lack there of for additional testing, need or lack there of for a procedure to be performed, need or lack there of for hospital admission / transfer, need or lack there of for prescription medication, treatment options, or a treatment plan. Note: my original RME note written for this patient was cancelled by someone else when the patient left without completing treatment. This is the second note created for the same visit on 12/26/2023. Differential Diagnosis Differential Diagnoses: The differential diagnosis associated with the presentation includes Hematuria UTI Bladder CA Admission/Observation Consideration of admission/observation: Escalation of care including admission/observation considered Patient would have been admitted to the hospital had he completed his work up and it had any findings where hospital admission was appropriate, his clinical presentation warranted hospital admission, had myself or any other emergency production department supervisor had the ability to discuss need or lack there of for hospital admission, and the patient hadn't left the department without completing treatment. Lab Data [facility] [place] Lab Attestation statement: I reviewed the patient's lab results. My interpretation of these results are in the MDM Rationale portion of this note. 12/26/23 19:57 12/26/23 19:57 Labs: Lab Results 12/26/23 12/26/23 Range/Units 19:40 19:57 WBC 8.1 (4.8-10.8) X10*3/uL RBC 4.63 (4.60-5.80) X10*6/uL Hgb 14.1 (14.0-18.0) g/dl Hct 41.1 L (42.0-52.0) % MCV 88.8 (80.0-98.0) fL MCH 30.5 (27.0-33.0) pg MCHC 34.3 (31.0-36.0) g/dl RDW 12.9 (11.0-16.0) % Plt Count 90 L (160-400) X10*3/uL MPV 10.3 (9.4-12.4) fL Immature Gran % (Auto) 0.2 (0.0-0.4) % Neut % (Auto) 78.1 H (45-73) % Lymph % (Auto) 11.6 L (20-40) % [place] % (Auto) 5.8 (2-11) % Eos % (Auto) 3.9 (0-4) % Baso % (Auto) 0.4 (0-2) % Lymph # (Auto) 0.9 L (1.2-4.9) X10*3/uL [place] # (Auto) 0.5 (0.1-1.2) X10*3/uL Eos # (Auto) 0.3 (0.0-0.4) X10*3/uL Baso # (Auto) 0.0 (0.0-0.2) X10*3/uL Abs Immat Gran (auto) 0.02 (0.00-0.03) X10*3/uL Absolute Neuts (auto) 6.3 (2.0-8.3) x10*3/uL Absolute Nucleated RBC 0.000 (0.0-0.012) X10*3/uL Nucleated RBC % (auto) 0.0 (0.0-0.2) /100WBC Sodium 138 (135-145) mmol/L Potassium 3.9 (3.3-5.1) mmol/L Chloride 107 (96-108) mmol/L Carbon Dioxide 23 (22-29) mmol/L Anion Gap 12 (12-20) BUN 8 L (9-16) mg/dL Creatinine 0.88 (0.5-1.4) mg/dL Estim Creat Clear Calc 84.1 Estimated GFR > 60 Random Glucose 190 H (60-115) mg/dL Calcium 8.9 D (8.4-10.2) mg/dL Total Bilirubin 1.2 H (0.0-1.0) mg/dL AST 73 H (5-37) U/L ALT 44 H (0-40) U/L Alkaline Phosphatase 201 H (39-117) U/L Total Protein 7.2 (6.5-8.0) g/dL Albumin 4.0 (3.5-5.0) g/dL Urine Color RED Urine Appearance Hazy Urine pH 7.0 (5.0-9.0) Ur Specific [place] 1.010 (1.005-1.025) Urine Protein 30 (1+) H (Neg-Trace) mg/dL Urine Glucose (UA) Negative (Negative) mg/dL Urine Ketones Negative (Negative) mg/dL Urine Blood Large (3+) H (Negative) Urine Nitrite Negative (Negative) Ur Leukocyte Esterase Trace H (Negative) Urine RBC >20 H (0-2) /HPF Urine WBC 6-10 H (0-5) /HPF Ur Squamous Epith Cells 0-2 (0-2) /HPF Urine Bacteria None Seen (None Seen) Hyaline Casts 0-2 (0-2) /LPF Discharge Plan Discharge Clinical Impression: Dysuria, Hematuria Patient Disposition: Left W/O Completing Treatment Prescriptions: No Action naproxen 500 mg tablet 500 mg PO BID PRN (Reason: pain) 10 Days Qty: 20 0RF amoxicillin-pot clavulanate 875-125 mg tablet 1 tab PO Q12H 10 Days Qty: 20 0RF ketorolac 10 mg tablet 10 mg PO QID PRN (Reason: pain) 5 Days Qty: 20 0RF Rx Instructions: Patient received Toradol 30 mg IM in the ED Discharge Date/Time: 12/26/23 22:24
== END 2023-12-26 22:24 | disposition left against medical advice (07) ==
PROVIDERS: Emergency Medicine Emergency Medical Services; Emergency Provider Internal Medicine
DX: R31.9 Hematuria, unspecified (principal); R30.0 Dysuria; F17.200 Nicotine dependence, unspecified, uncomplicated
CPT/HCPCS: 36415; 80053; 81001; 85025; 87086; 99283

== ENCOUNTER 2024-11-15 09:05 | Inpatient (IN) | payer OTHER, SELFPAY ==
[2024-11-15] VITALS (9 sets, daily range): BP systolic 110–212; BP diastolic 64–110; PULSE 52–70; RESP 12–20; TEMP 36.2–36.7; O2SAT 96–100; BMI 20.3; BMI 19.0
--- NOTE | ~2024-11-15 | XR_ITS ---
EXAMINATION: XR HIP, RIGHT CLINICAL INFORMATION: pain s/p fall COMPARISON: None available. TECHNIQUE: AP upright, AP supine, and frog-leg lateral views of the right hip. FINDINGS: There is an intertrochanteric fracture line extending through the greater trochanter towards the lesser trochanter. There is vertical lucency across the base of the lesser trochanter with a small cortical fragment along the medial neck of the right femur. There is mild axial joint space narrowing of the right hip. There are small marginal osteophytes involving acetabular roof. Mild vascular calcifications are present in the bilateral femoral arteries. XR/XR hip RT w PEL1V IMPRESSION: There is an acute intertrochanteric fracture of the proximal right femur. Mild right hip degenerative change. Mild to moderate vascular calcifications. Electronically signed by: Pb Durbin MD 11/15/2024 11:06 AM EDT
--- NOTE | ~2024-11-15 | XR_ITS ---
EXAMINATION: XR ELBOW, RIGHT CLINICAL INFORMATION: pain s/p fall COMPARISON: None available. TECHNIQUE: AP, lateral, and oblique views of the right elbow. FINDINGS: Study somewhat limited due to patient being uncooperative. The lateral view is suboptimal and presence of joint effusion cannot be assessed. There is a linear lucency through the medial ulna on the AP projection, possible fracture. No displaced fracture or malalignment. Joint spaces largely preserved. Soft tissues normal. XR/XR elbow RT 2V IMPRESSION: Limited exam. Cannot assess for joint effusion. Possible nondisplaced fracture through the medial ulna on the AP projection. This is not definitive. Would recommend repeat exam when the patient is able to cooperate. Electronically signed by: Dylan Castano MD 11/15/2024 11:03 AM EDT
--- NOTE | ~2024-11-15 | CT_ITS ---
EXAMINATION: CT HEAD WITHOUT CONTRAST CLINICAL INFORMATION: fall COMPARISON: None available. TECHNIQUE: Contiguous axial imaging was performed from the skull base to vertex without intravenous administration of contrast. This CT examination was performed using dose optimization techniques as appropriate, variously including the following: *Automated exposure control *Adjustment of mA and/or kV according to patient size (this includes techniques or standardized protocols for targeted exams where dose is matched to indication/reason for exam; i.e. extremities or head) *Use of iterative reconstruction technique DLP: 650 mGy-cm FINDINGS: There is an old traumatic deformity/depression of the right parietal bone. Old traumatic deformity in the nasal bones. Metallic wire in the lateral and inferior left orbital floor. No acute cortical disruption in the bony calvarium or the skull base.. No acute intracranial hemorrhage, mass effect, midline shift, hydrocephalus or herniation. Haynes-white matter differentiation is normal. Sellar/suprasellar region demonstrated no gross masses. Craniocervical junction demonstrates normal position of the cerebellar tonsils. Calcified plaques in the V4 segments of the vertebral arteries and cavernous supracavernous segments both ICAs. Calcifications in the putamen, bilaterally. Bilateral multifocal patchy deep periventricular white matter hypodensity involving centrum semiovale and stewart radiata. Mucosal thickening with a polypoid morphology pattern involving maxillary sinuses and ethmoid air cells and frontal sinus. Effervescent secretions in the right frontal sinus. Tympanic cavities and mastoid cells are aerated. CT/CT head/brain wo IV con IMPRESSION: No acute fracture, bony calvarium. No acute intracranial hemorrhage. Small vessel occlusive disease. Atherosclerosis disease, intracranial. Old traumatic deformities, maxillofacial bones and right parietal bone. Polypoid paranasal sinus disease. Electronically signed by: Kobe Zarco MD 11/15/2024 10:42 AM EDT
--- NOTE | ~2024-11-15 | XR_ITS ---
EXAMINATION: XR FEMUR, RIGHT CLINICAL INFORMATION: pain COMPARISON: None available. TECHNIQUE: AP and lateral views of the right femur were obtained. FINDINGS: There are proximal femur is demonstrated on the right hip and pelvis x-ray performed on the same day which demonstrate an intertrochanteric fracture.. The knee joint demonstrates moderate narrowing of the medial compartment and mild narrowing of the lateral compartment. There is no joint effusion. Mild focal calcifications present in the distal femoral and popliteal artery. XR/XR femur RT 2V IMPRESSION: Intertrochanteric fracture of the right femur, see hip x-ray. Moderate osteoarthritis of the right knee. Electronically signed by: Pb Durbin MD 11/15/2024 11:08 AM EDT
--- NOTE | ~2024-11-15 | CT_ITS ---
EXAMINATION: CT CERVICAL SPINE WITHOUT CONTRAST CLINICAL INFORMATION: Status post fall. COMPARISON: None available. TECHNIQUE: Contiguous axial images through the cervical spine using 3 mm collimation with bone and soft tissue algorithm. Sagittal and coronal reformatted images acquired. DLP: [address] examination was performed using dose optimization techniques as appropriate, variously including the following: *Automated exposure control *Adjustment of mA and/or kV according to patient size (this includes techniques or standardized protocols for targeted exams where dose is matched to indication/reason for exam; i.e. extremities or head) *Use of iterative reconstruction technique FINDINGS: Craniocervical junction is intact with normal alignment between the occipital condyles and the lateral masses of C1. Degenerative changes in the periodontal C1 region. Syndesmophyte formation C5-6 and C6-7. Marginal osteophyte formation C4-5 C3-4 and to a lesser extent C7-T1. Bilateral facet joint hypertrophy at C3-4, C4-5 levels. There is a grade 1 anterolisthesis C4-5 probably degenerative. C1 is intact. C2 is intact. C3 is intact. C4 is intact. C5 is intact. C6 is intact. C7 is intact. No prevertebral compartment hematoma. Calcified plaques in the V4 segments of the vertebral arteries and the carotid bulbs and proximal ICAs, bilaterally. The thyroid gland is not enlarged. CT/CT cervical spine wo IV con IMPRESSION: Multilevel cervical spondylosis without acute fracture or trauma-related listhesis. Atherosclerosis disease. Fleischner guidelines were followed. Electronically signed by: Koeb Zarco MD 11/15/2024 10:53 AM EDT
--- NOTE | ~2024-11-15 | FL_ITS ---
EXAMINATION: FL GUIDANCE ONLY HISTORY: Right hip fracture COMPARISON: Correlation is made with plain films of the right hip dated 11/15/2024. TECHNIQUE: Fluoroscopy time: 0.4 minutes. Cumulative Dose: 6.71 mGy. DAP: 0.116 mGym2 Images: 5. FINDINGS: Fluoroscopic spot films of the right hip demonstrate internal fixation of the previously seen intertrochanteric fracture with a compression screw and intramedullary vanita. FL/FL guidance in OR IMPRESSION: Fluoroscopy during procedure. Please see procedure report for additional information. Electronically signed by: Benja Weber MD 11/17/2024 07:00 AM EDT
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
--- NOTE | 2024-11-15 09:31 | PC.NURSE ---
Patient being noncompliant with care. Refusing to change into hospital attire. This RN was able to get sweater off but patient adamant about changing himself.
--- NOTE | 2024-11-15 09:52 | PC.NURSE ---
Patient allowed pants to be removed but wanted to keep shirt on Right elbow cleansed and dressed with DCD Patient awaiting xrays
--- NOTE | 2024-11-15 10:14 | PC.NURSE ---
Pt returned from CT scan, results pending
--- NOTE | 2024-11-15 12:12 | ECG_ITS ---
Test Reason : FALL Blood Pressure : */* mmHG Vent. Rate : 62 BPM Atrial Rate : 62 BPM P-R Int : 188 ms QRS Dur : 82 ms QT Int : 466 ms P-R-T Axes : 84 86 89 degrees QTcB Int : 472 ms Normal sinus rhythm Normal ECG No previous ECGs available Referred By: Pat Espinoza Electronically Signed By: OCHOA MENDOZA
[2024-11-15 12:49] LABS: MANUAL DIFF FLAG NO
[2024-11-15 12:57] LABS: Hematocrit 42.8 % (42.0-52.0); Hemoglobin 14.7 g/dl (14.0-18.0); Imm Gran Abs Auto 0.05 X10*3/uL (0.00-0.03); Imm Gran Pct Auto 0.5 % (0.0-0.4); Lymphocytes Absolute Auto 0.5 X10*3/uL (1.2-4.9); Mean Corpuscular HGB Conc 34.3 g/dl (31.0-36.0); Mean Corpuscular Hemoglobin 29.9 pg (27.0-33.0); Mean Corpuscular Volume 87.0 fL (80.0-98.0); NRBC Abs Auto 0.000 X10*3/uL (0.0-0.012); NRBC Pct Auto 0.0 /100WBC (0.0-0.2); Red Blood Count 4.92 X10*6/uL (4.60-5.80); White Blood Count 9.4 X10*3/uL (4.8-10.8)
[2024-11-15 12:58] LABS: Platelet Count 88 X10*3/uL (160-400)
[2024-11-15 13:09] LABS: Alanine Aminotransferase 36 U/L (0-40); Albumin Level 4.3 g/dL (3.5-5.0); Alkaline Phosphatase 136 U/L (39-117); Anion Gap 11 (12-20); Aspartate Amino Transferase 45 U/L (5-37); Blood Urea Nitrogen 12 mg/dL (9-16); Calcium 9.6 mg/dL (8.4-10.2); Carbon Dioxide 24 mmol/L (22-29); Chloride 107 mmol/L (96-108); Creatinine Clr Calc Pharmacy 93.1; Estimated Glomerular Filt Rate > 60; Magnesium 2.3 mg/dL (1.6-2.6); Potassium 4.3 mmol/L (3.3-5.1); Sodium 138 mmol/L (135-145); Total Protein 7.3 g/dL (6.5-8.0)
[2024-11-15 13:16] LABS: Troponin-I High Sensitivity < 2.7 ng/L (<3.5-35.0)
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
--- NOTE | 2024-11-15 14:39 | MHC.EDTECH ---
400mL of yellow urine emptied from bedside urinal
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
--- NOTE | 2024-11-15 16:05 | MHC.EDTECH ---
400mL of yellow urine emptied from urinal
--- NOTE | 2024-11-15 17:51 | PHA.MEDREC ---
Addendum entered by Avi Francis, EstephanieD 11/15/24 18:17: MED REC CHECKED BY [facility] Original Note: Pharmacy Consult ? Medication Reconciliation Pharmacy has completed the medication reconciliation. Spoke with pt and he states he is taking some medications that he gets from the [facility] (Lunesta 10m-2@bedtime, Gabapentin 400mQD and Hydroxyzine 25m@bedtime). I called [facility] and they confirmed the pt medications over the phone; pt getting Naloxzone 4gm, Clonidine 0.1mBID, Lurasidone 40mQD, Gabapentin 300mTID and Hydroxyzine 50m@bedtime.
--- NOTE | 2024-11-15 18:02 | PC.NURSE ---
MD verdugo to give morphine early patient reports pain 12/30 with BP elevated to 198/98.
[2024-11-15 18:47] LABS: Cannabinoid Screen Urine Not Detected (Not Detect)
[2024-11-15] MEDS: Nicotine 14 MG PATCH.TD24 TRANSDERMA (19:34)
[2024-11-15] MEDS: 0.9 % Sodium Chloride Flush 3 ML SYRINGE IVFLUSH (22:05)
[2024-11-16] VITALS (17 sets, daily range): BP systolic 147–192; BP diastolic 87–114; PULSE 65–93; RESP 12–28; TEMP 36.3–37.2; O2SAT 95–100
--- NOTE | 2024-11-16 05:23 | PC.NURSE ---
Provider approved early administration of morphine. Pt having consistent pain 10/30. BP continues to be elevated at 176/101 even after administration of hydralazine.
[2024-11-16] MEDS: oxyCODONE HCl Immed Release 5 MG TABLET PO ×2 (07:48→11:43)
[2024-11-16] MEDS: Nicotine 14 MG PATCH.TD24 TRANSDERMA (07:49)
[2024-11-16] MEDS: 0.9 % Sodium Chloride Flush 3 ML SYRINGE IVFLUSH ×3 (07:49→16:34)
--- NOTE | 2024-11-16 09:40 | MHC.CM.PN ---
CM MET WITH PT AT BEDSIDE. PT LIVES WITH ROOMMATES AND IS FUNCTIONALLY INDEP. [facility] IS [facility]% [facility]. PT DECLINES TO COMPLETED A HCP. P[facility] [place] [facility]: PT IS DECLINING REHAB IF RECOMMENDED, WOULD LIKE TO GO HOME WITH SERVICES. WILL NEED [facility] FOR [facility] (PT'S FIRST CHOICE) PT MAY NEED S TRANSPORT HOME. CM WILL CONTINUE TO FOLLOW FOR ANY CHANGE TO DC PLAN/NEEDS.
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
--- NOTE | 2024-11-16 11:25 | MHC.SHP ---
Pre-Procedural Eval Section A - 24 Hr Update-Section A only Date of Service: 11/16/24 The patient is an INPATIENT: Yes Changes since office visit: No Cold of Flu in the past 2 weeks, No New Medical Problems, No Changes in Medication and No Patient answered all questions The patient has been examined within 24 hours of the surgical procedure. The History & Physical has been completed within 30 days and I have reviewed it.: Yes Section B - Complete if H&P > 30 days Chief Complaint: right femur fracture Allergies: Allergies Allergy/AdvReac Type Severity Reaction Status Date / Time No Known Allergies Allergy Verified 11/15/24 09:20 Plan I have reviewed the history and physical and performed a pertinent physical examination on my patient. No changes have occurred unless specified. Time Spent With Patient Time: Total time managing care of this patient today ____ minutes.
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
--- NOTE | 2024-11-16 13:08 | HO.WOUND ---
Wound consult placed for right knee, elbow, skin, shoulder. Attempted assessment x 2 however, patient in the OR. will evaluate at a later date/time. based on photo documentation of right elbow/arm skin tears, will recommend xeroform for treatment. will follow up for physical assessment.
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
[2024-11-16] MEDS: Lactated Ringers 1,000 ML 100 ML IVCONT (14:54)
[2024-11-16] MEDS: methADONE HCl 20 MG/2 ML ORAL.CONC 30 MG PO (16:34)
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
--- NOTE | 2024-11-16 17:15 | HO.SKINPHOTO ---
Location: Right ELbow and Forearm Category: Skin Tear / Abrasion Treated with Xeroform and gauze wrap after cleansing. Location: Right Knee and Haynes Category: abrasions Treated with cleansing and foam dressing applied.
[2024-11-17] MEDS: Lactated Ringers 1,000 ML 100 ML IVCONT (00:59)
--- NOTE | 2024-11-17 03:00 | PC.NURSE ---
Dr. Funk made aware of elevated BP, and meds given to improve BP, with no effect, no new orders at this time. Pt is now refusing to get BP rechecked after pain meds were given, Dr. Funk made aware.
[2024-11-17 03:29] VITALS: BP 190/100; PULSE 76; RESP 16; TEMP 36.1; O2SAT 98
[2024-11-17] MEDS: oxyCODONE HCl Immed Release 5 MG TABLET PO ×2 (05:56→15:55)
--- NOTE | 2024-11-17 05:58 | PC.NURSE ---
Patient continues to refuses to have blood pressure checked, stating it is just going to be the same, no more Dr. Funk is aware.
[2024-11-17 06:26] VITALS: BP 189/95
[2024-11-17 06:33] LABS: MANUAL DIFF FLAG NO
[2024-11-17 06:51] LABS: Anion Gap 15 (12-20); Blood Urea Nitrogen 16 mg/dL (9-16); Calcium 9.0 mg/dL (8.4-10.2); Carbon Dioxide 18 mmol/L (22-29); Chloride 104 mmol/L (96-108); Creatinine Clr Calc Pharmacy 107.3; Estimated Glomerular Filt Rate > 60; Potassium 4.1 mmol/L (3.3-5.1); Sodium 133 mmol/L (135-145)
[2024-11-17 07:12] LABS: Hematocrit 47.4 % (42.0-52.0); Hemoglobin 15.7 g/dl (14.0-18.0); Imm Gran Abs Auto 0.07 X10*3/uL (0.00-0.03); Imm Gran Pct Auto 0.6 % (0.0-0.4); Lymphocytes Absolute Auto 0.9 X10*3/uL (1.2-4.9); Mean Corpuscular HGB Conc 33.1 g/dl (31.0-36.0); Mean Corpuscular Hemoglobin 29.7 pg (27.0-33.0); Mean Corpuscular Volume 89.6 fL (80.0-98.0); NRBC Abs Auto 0.000 X10*3/uL (0.0-0.012); NRBC Pct Auto 0.0 /100WBC (0.0-0.2); Red Blood Count 5.29 X10*6/uL (4.60-5.80); White Blood Count 12.6 X10*3/uL (4.8-10.8)
[2024-11-17 07:17] LABS: Platelet Count 92 X10*3/uL (160-400)
--- NOTE | 2024-11-17 07:45 | PM.PNORT ---
Subjective Subjective Date of Service: 11/17/24 Interval history: Postop day 1 status post right hip IM nail Patient resting comfortably in bed this morning Pain well managed No acute events overnight No other acute complaints or concerns at this time Physical Exam Vital Signs: Vital Signs: Last Vital Signs Temp 96.9 F 11/17/24 03:29 Pulse 76 11/17/24 03:29 Resp 16 11/17/24 03:29 BP 189/95 H 11/17/24 06:26 Pulse Ox 98 11/17/24 03:29 O2 Del Method Room Air 11/17/24 03:29 O2 Flow Rate 6 11/16/24 13:44 BMI result Body Mass Index 19.0 Extrem: Other: Dressing on right hip clean, dry, intact No evidence of surrounding erythema, ecchymosis No evidence of infection Patient is able to flex and extend the digits of the right foot without difficulty Compartments soft, nontender Distal sensation intact Capillary refill brisk Procedures Date of Service Date of Service: 11/17/24 Progress Note: A&P Assessment and plan (1) Fracture, intertrochanteric, right femur: Status: Acute Plan 1. Status post right hip IM nail DOS 11/16/2024 Continue pain management Begin aspirin for DVT prophylaxis PT/OT eval pending Dispo planning-PT/OT eval, case management, medical clearance Time Spent With Patient Time: Total time managing care of this patient today ____ minutes. Quality Stroke Does the patient have a stroke diagnosis?: No VTE Prior VTE?: No VTE Risk Level:: Medical - moderate - high VTE Device Contraindication: N/A - Device Ordered VTE Drug Contraindication: Treatment Not Indicated
[2024-11-17 07:48] VITALS: BP 159/90; PULSE 82; RESP 16; TEMP 36; O2SAT 98
--- NOTE | 2024-11-17 07:53 | HO.POSTANES ---
Post Anesthesia Evaluation Post Anesthesia Evaluation Date of Service: 11/17/24 Vital Signs: Vital Signs Temp Pulse Resp BP Pulse Ox O2 Del Method 11/17/24 07:48 96.8 F 82 16 159/90 H 98 Room Air 11/17/24 06:26 189/95 H 11/17/24 03:29 96.9 F 76 16 190/100 H 98 Room Air 11/16/24 23:57 190/94 H 11/16/24 23:47 97.7 F 69 16 190/94 H 96 Room Air Anesthesia: General Mental Status: Awake Pain Control: Satisfactory Nausea/Vomiting: None Hydration: Adequate Anesthesia-Related Issues: No Anes. Related Issues
[2024-11-17] MEDS: methADONE HCl 20 MG/2 ML ORAL.CONC 45 MG PO (08:30)
[2024-11-17] MEDS: Nicotine 14 MG PATCH.TD24 TRANSDERMA (08:42)
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
--- NOTE | 2024-11-17 10:40 | MHC.RECOVRN ---
TW met with pt to offer continued support and check-in on pain management. Pt reports pain is adequately managed and denies any questions or concerns at this time. Pt educated to present to [facility] clinic upon discharge with last dose letter to continue methadone dosing in the community. Pt verbalized understanding. Tw available for further questions or concerns as needed.
[2024-11-17 11:00] VITALS: BP 149/60; PULSE 97; RESP 16; TEMP 37.2; O2SAT 97
[2024-11-17 15:29] VITALS: BP 100/51; PULSE 86; RESP 18; TEMP 36.8; O2SAT 95
[2024-11-17] MEDS: 0.9 % Sodium Chloride Flush 3 ML SYRINGE IVFLUSH ×2 (15:46→20:35)
[2024-11-17 20:00] VITALS: BP 107/61; PULSE 80; RESP 18; TEMP 36.3; O2SAT 97
[2024-11-18] VITALS: BP 103/58; PULSE 69; RESP 16; TEMP 36.8; O2SAT 96
[2024-11-18] MEDS: oxyCODONE HCl Immed Release 5 MG TABLET PO ×2 (02:51→10:23)
--- NOTE | 2024-11-18 03:04 | MHC.PIE ---
p; pt c/o loose stool, per pt has hx of loose stool/diarrhea pt reports taking imodium at home i; dr tracey notified e; will cont to monitor
[2024-11-18 03:14] VITALS: BP 99/58; PULSE 84; RESP 18; TEMP 36.1; O2SAT 96
[2024-11-18 06:22] LABS: MANUAL DIFF FLAG NO
[2024-11-18 07:01] LABS: Hematocrit 36.9 % (42.0-52.0); Hemoglobin 12.3 g/dl (14.0-18.0); Imm Gran Abs Auto 0.07 X10*3/uL (0.00-0.03); Imm Gran Pct Auto 0.7 % (0.0-0.4); Lymphocytes Absolute Auto 1.7 X10*3/uL (1.2-4.9); Mean Corpuscular HGB Conc 33.3 g/dl (31.0-36.0); Mean Corpuscular Hemoglobin 29.5 pg (27.0-33.0); Mean Corpuscular Volume 88.5 fL (80.0-98.0); NRBC Abs Auto 0.000 X10*3/uL (0.0-0.012); NRBC Pct Auto 0.0 /100WBC (0.0-0.2); Platelet Count 120 X10*3/uL (160-400); Red Blood Count 4.17 X10*6/uL (4.60-5.80); White Blood Count 10.4 X10*3/uL (4.8-10.8)
[2024-11-18 07:10] LABS: Blood Urea Nitrogen 31 mg/dL (9-16); Calcium 8.4 mg/dL (8.4-10.2)
[2024-11-18 07:29] VITALS: BP 109/62; PULSE 66; RESP 16; TEMP 37.1; O2SAT 97
[2024-11-18 07:29] LABS: Anion Gap 14 (12-20); Carbon Dioxide 21 mmol/L (22-29); Chloride 105 mmol/L (96-108); Creatinine Clr Calc Pharmacy 64.6; Estimated Glomerular Filt Rate > 60; Potassium 3.4 mmol/L (3.3-5.1); Sodium 137 mmol/L (135-145)
--- NOTE | 2024-11-18 08:14 | PM.PNORT ---
Subjective Subjective Date of Service: 11/18/24 Interval history: Postop day 2 status post right hip IM nail Patient resting comfortably in bed this morning Pain well managed No acute events overnight No other acute complaints or concerns at this time Physical Exam Vital Signs: Vital Signs: Last Vital Signs Temp 98.8 F 11/18/24 07:29 Pulse 66 11/18/24 07:29 Resp 16 11/18/24 07:29 BP 109/62 11/18/24 07:29 Pulse Ox 97 11/18/24 07:29 O2 Del Method Room Air 11/18/24 07:29 O2 Flow Rate 6 11/16/24 13:44 BMI result Body Mass Index 19.0 Extrem: Other: Dressing on right hip clean, dry, intact No evidence of surrounding erythema, ecchymosis No evidence of infection Patient is able to flex and extend the digits of the right foot without difficulty Compartments soft, nontender Distal sensation intact Capillary refill brisk Procedures Date of Service Date of Service: 11/18/24 Progress Note: A&P Assessment and plan (1) Fracture, intertrochanteric, right femur: Status: Acute Plan 1. Status post right hip IM nail DOS 11/16/2024 Continue pain management aspirin for DVT prophylaxis PT/OT weightbear as tolerated, gait training and strengthening Dispo planning-home with VNA once medically cleared Time Spent With Patient Time: Total time managing care of this patient today ____ minutes. Quality Stroke Does the patient have a stroke diagnosis?: No VTE Prior VTE?: No VTE Risk Level:: Medical - moderate - high VTE Device Contraindication: N/A - Device Ordered VTE Drug Contraindication: Treatment Not Indicated
[2024-11-18] MEDS: methADONE HCl 20 MG/2 ML ORAL.CONC 45 MG PO (08:33)
[2024-11-18] MEDS: Nicotine 14 MG PATCH.TD24 TRANSDERMA (08:34)
[2024-11-18] MEDS: 0.9 % Sodium Chloride Flush 3 ML SYRINGE IVFLUSH (08:34)
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
--- NOTE | 2024-11-18 08:57 | W.MHC.F2F ---
Service Date Service Date: 11/18/24 Encounter Date of encounter: 11/18/24 Reasons for Services Signs and symptoms assessed: right hip fractdure,pain Reason for physical therapy: therapeutic exercises and gait/transfer training Reason for occupational therapy: therapeutic exercises, gait/transfer training and assess need for DME Homebound: Leaving the home is medically contraindicated at this time without the asist of a device and/or another person due th the listed conditions above and below. Reason homebound: pain with ambulation and unable to drive Homebound supporting statement: Homebound due to new hip fracture that has undergone a surgical repair patient relying on assisted device and unable to drive and therefore needs the assistance of another person at this time Certification: Based on the above findings, I certify that this patient is confined to the home and needs intermittent nursing home care, physical therapy and/or speech therapy, or continues to need occupational therapy. The patient is under my care, and I have initiated the establishment of the plan of care. The patient will be followed by a physician who will periodically review the plan of care. Time Spent With Patient Time: Total time managing care of this patient today ____ minutes.
--- NOTE | 2024-11-18 09:54 | MHC.CM.PN ---
DP: PT HAS BEEN MEDICALLY CLEARED FOR DC HOME WITH NEW [facility] FOR HOME SERVICES. BLS TRANSPORT BOOKED FOR 11 AM VIA [facility]. RN UPDATED AND [facility] MADE AWARE OF TODAY'S DC.
[2024-11-18 11:06] VITALS: BP 96/55; PULSE 100; RESP 18; O2SAT 97
--- NOTE | 2024-11-23 11:42 | P.OP_ITS ---
Operative Note Operative Note Date of Service: 11/16/24 Narrative: Date of Service: 11/16/24 Pre-op diagnosis: Right intertrochanteric femur fracture Post-op diagnosis: same Procedure: Right hip IMN Implants: Aaron [id number] 125 deg with 100 mm hip screw and 40 mm distal itnerlock Surgeon: Lior Muñoz MD Anesthesia: GETA and local Was an Pesticide Control Inspector used for this Procedure?: No Estimated blood loss (mL): 50 IV fluids (mL): 500 Pathology: none sent Condition: stable Disposition: PACU Procedure in detail: Patient was brought to the operating room and prepped and draped in standard sterile fashion. Time-out was called to identify proper site procedure proper surgeon and IV antibiotics per weight were administered. He was positioned on the fracture table and a traction and slight internal rotation were performed and biplanar fluoroscopy confirmed initial fracture reduction. I then made a stab incision proximal to the greater trochanter in using a guidewire made a entry point just lateral to the tip of the greater trochanter and placed a guidewire into the femoral metadiaphysis. I then over-reamed with 15 mm Reamer placed my ball-tip guidewire down distally in the femur and measured my length. I selected a [id number] 125 deg IMN nail and reamed up to a 11.5. I then inserted the nail. I then turned my attention to the hip screw where I used a guidewire and a tip apex distance of less than 1.5 measured my hip screw. I then pre drilled and placed a 100mm hip screw using biplanar fluoroscopy. Once I was satisfied with the position of the hip screw I turned my attention to the distal aspect of the nail. Using the guide I placed a distal interlocking screw in the dynamic hole using standard AO technique. I then removed all I tightened my set screw proximally and removed all extraneous instrumentation. Final biplanar radiographs were taken. I was satisfied with the position of the hardware and the fracture reduction. I think copiously irrigated closed with absorbable sutures rizwana and injected 30 mL of into the area of the incisions. Traction was let down patient was placed in sterile dressing awakened from anesthesia brought to recovery room stable condition there were no known complications.
== END 2024-11-18 11:08 | disposition home health service (06) | DRG 482 ==
LOC: HO.ED 10:46 → HO.EDOVER 12:53 → HO.S3 15:35
PROVIDERS: Orthopaedic Surgery; Physician Assistant; Physician Assistant Medical; Admitting Provider Student in an Organized Health Care Education/Training Program; Emergency Provider Emergency Medicine; Visit Provider Internal Medicine
PROC: 0QS636Z Reposition Right Upper Femur with Intramedullary Internal Fixation Device, Percutaneous Approach (ICD-10-PCS; principal; 2024-11-16 14:00)
DX: S72.141A Displaced intertrochanteric fracture of right femur, initial encounter for closed fracture (principal); F17.210 Nicotine dependence, cigarettes, uncomplicated; Z71.6 Tobacco abuse counseling; V19.9XXA Pedal cyclist (driver) (passenger) injured in unspecified traffic accident, initial encounter; I10 Essential (primary) hypertension; Z79.899 Other long term (current) drug therapy
CPT/HCPCS: 36415; 70450; 72125; 73070; 73502; 73552; 80048; 80053; 80307; 82550; 83735; 84484; 85025; 86850; 86900; 86901; 93005; 97110; 97116; 97161; 97165; 97535; 99285; C1713; J0131; J0360; J0690; J1100; J1171; J2003; J2250; J2270; J2371; J2405; J2704; J2795; J7120; S9485

== ENCOUNTER → 2024-11-15 09:26 | Outpatient (BNV) | payer OTHER, SELFPAY | PROVIDERS: Emergency Provider Emergency Medicine; Visit Provider Radiology Diagnostic Radiology | DX: M47.812 Spondylosis without myelopathy or radiculopathy, cervical region (principal); R90.82 White matter disease, unspecified; M16.11 Unilateral primary osteoarthritis, right hip; M17.11 Unilateral primary osteoarthritis, right knee; M25.521 Pain in right elbow | CPT/HCPCS: 70450; 72125; 73070; 73502; 73552 ==

== ENCOUNTER → 2024-11-15 12:12 | Outpatient (BNV) | payer OTHER, SELFPAY | PROVIDERS: Admitting Provider Student in an Organized Health Care Education/Training Program; Emergency Provider Emergency Medicine; Visit Provider Internal Medicine | DX: Z04.3 Encounter for examination and observation following other accident (principal) | CPT/HCPCS: 93010 ==

== ENCOUNTER → 2024-11-15 12:37 | Outpatient (BNV) | payer OTHER, SELFPAY | PROVIDERS: Admitting Provider Student in an Organized Health Care Education/Training Program; Emergency Provider Emergency Medicine; Visit Provider Orthopaedic Surgery | DX: S72.141A Displaced intertrochanteric fracture of right femur, initial encounter for closed fracture (principal) | CPT/HCPCS: 27245; 99024; 99223 ==

== ENCOUNTER → 2024-11-15 12:37 | Outpatient (BNV) | payer OTHER, SELFPAY | PROVIDERS: Admitting Provider Student in an Organized Health Care Education/Training Program; Emergency Provider Emergency Medicine; Visit Provider Internal Medicine | DX: S72.001A Fracture of unspecified part of neck of right femur, initial encounter for closed fracture (principal) | CPT/HCPCS: 99222; 99232; G0180 ==

== ENCOUNTER 2024-12-02 08:24 | Outpatient (REF) | payer OTHER, SELFPAY | END 2024-12-02 08:25 | disposition home or self-care (01) | LOC: HO.HOSX 08:24 | PROVIDERS: Visit Provider Physician Assistant | DX: Z13.89 Encounter for screening for other disorder (principal) ==

== ENCOUNTER 2024-12-05 09:21 | Outpatient (REF) | payer OTHER, SELFPAY | END 2024-12-05 09:22 | disposition home or self-care (01) | LOC: HO.HOSX 09:21 | PROVIDERS: Visit Provider Physician Assistant | DX: Z13.89 Encounter for screening for other disorder (principal) ==

== ENCOUNTER 2024-12-07 10:50 | Outpatient (AMB) | payer OTHER, SELFPAY ==
--- NOTE | 2024-12-07 11:07 | MHC.OFFVIS ---
Intake Visit Reasons: PO-rt hip IM Nail with NE 11/16/24 Intake Note: Richard is a 69 year old man who presents today for a post operative visit status post undergoing a right hip IMN, DOS: 11/16/[address] Lior Muñoz. Patient reports that he continues to have constant pain in his hip. His current pain level is an 8 out of 10. Allergies No Known Allergies Allergy (Verified 12/07/24 11:09) HPI HPI PO-rt hip IM Nail with NE 11/16/24: Details: 69-year-ol gentleman presents to the office today status post right hip IM nail on 11/16/[address] Muñoz. He is using a pool stick as a walking stick. He states he is receiving physical therapy services at home. States he is in pain and has no pain medication. He does have a substance use history with heroin. [facility] Medical History (Updated 11/26/24 @ 00:01 by Fabi Donahue) Bipolar disorder PTSD (post-traumatic stress disorder) Depression Surgical History Hx of colectomy Social History Household Members: Other Household Members Other:: roommates Housing: House Do you presently have visiting nurse or other home services: No Unable to assess alcohol history related to: Refusing to respond Patient Tobacco Use Status: Current everyday Tobacco user Tobacco use type: Cigarette Cigarette Packs Per Day: 1 Cigarettes Per Day: 15 e-Cigarette/Vaping Use: Currently Using Second Hand Smoke Exposure: No Substance Use Type: Heroin service: Yes Review of Systems Const All systems reviewed & are unremarkable except as noted in HPI and below Physical Exam Extrem Other: Right hip incision is clean dry and intact. No erythema or edema. He can flex the hip and perform range of motion without pain. Calf is supple and nontender neurovascularly intact. Results Reviewed Results Reviewed: X-rays of the right hip obtained in the office today and reviewed by me show intact intramedullary nail with stable fracture pattern. Assessment & Plan Assessment & Plan (1) Fracture, intertrochanteric, right femur: Code(s): S72.141A - Displaced intertrochanteric fracture of right femur, initial encounter for closed fracture Category: Medical Plan: [place] removed today and Steri-Strips were applied the patient will continue working with physical therapy for gait training and conditioning exercises. He is weight-bearing as tolerated. I did have a discussion with him about opiate use along with substance use such as heroin and how it is not a encouraged or recommended to take the 2 at the same time as there are risks of overdosing. The patient does express understanding. I did send him a prescription for oxycodone q.6 hours to the pharmacy. He will see me back in 6-8 weeks with repeat x-rays, sooner if needed. Medications: Refilled oxycodone Partial Fill upon patient request. 5 mg PO Q6H PRN 28 tabs 0RF pain (scale score 7-10) Coding Level of Care Code Global (65256) Diagnoses Fracture, intertrochanteric, right femur S72.141A
== END 2024-12-07 11:32 | disposition home or self-care (01) ==
LOC: HO.HOS 10:50
PROVIDERS: Visit Provider Physician Assistant
DX: S72.141A Displaced intertrochanteric fracture of right femur, initial encounter for closed fracture (principal)
CPT/HCPCS: 99024

== ENCOUNTER → 2024-12-07 10:50 | Outpatient (BNV) | payer OTHER, SELFPAY | PROVIDERS: Visit Provider Radiology Diagnostic Radiology | DX: S72.91XD Unspecified fracture of right femur, subsequent encounter for closed fracture with routine healing (principal) | CPT/HCPCS: 73552 ==

== ENCOUNTER 2024-12-07 11:04 | Outpatient (REF) | payer OTHER, SELFPAY ==
--- NOTE | ~2024-12-07 | XR_ITS ---
EXAMINATION: XR FEMUR, RIGHT CLINICAL INFORMATION: S72.90XA - Unspecified fracture of unspecified femur, initial encounter ... COMPARISON: November 16, 2024 TECHNIQUE: AP and lateral views of the right femur were obtained. FINDINGS: There is short intramedullary nail with distal locking cortical screw . There is a lag screw traversing the femoral neck. Hardware is intact. There is increasing density with new bone formation across the fracture lesser trochanter consistent with healing. On lateral, fracture at the base of the femoral neck is visible with evidence of early new bone formation. Increasing density is present in the soft tissues cephalad to the greater trochanter and lateral to the lack screw consistent with heterotopic ossification. Skin rizwana remain in place laterally. XR/XR femur RT 2V IMPRESSION: Healing intertrochanteric fracture post-ORIF. Early heterotopic ossification. Electronically signed by: Pb Durbin MD 12/07/2024 11:14 AM EDT
== END 2024-12-07 11:05 | disposition home or self-care (01) ==
LOC: HO.HOSX 11:04
PROVIDERS: Visit Provider Physician Assistant
DX: S72.141D Displaced intertrochanteric fracture of right femur, subsequent encounter for closed fracture with routine healing (principal)
CPT/HCPCS: 73552

== ENCOUNTER 2025-01-19 08:49 | Outpatient (REF) | payer OTHER, SELFPAY | END 2025-01-19 08:50 | disposition home or self-care (01) | LOC: HO.HOSX 08:49 | PROVIDERS: Visit Provider Physician Assistant | DX: Z13.89 Encounter for screening for other disorder (principal) ==